=== PATIENT | female | born 2000 | race Caucasian/White ===

== ENCOUNTER 2024-01-03 02:02 | Day surgery (SDC) | payer BC, SELFPAY ==
[2024-01-02 17:49] VITALS: BP 128/94
[2024-01-02 18:00] LABS: Urine Albumin Trace (Neg - Trace); Urine Bilirubin Negative (Negative); Urine Character Clear (Clear); Urine Color Yellow; Urine Glucose Negative (Negative); Urine Ketone 3+ (Negative); Urine Leukocyte Trace (Negative); Urine Nitrite Negative (Negative); Urine Occult Blood Negative (Negative); Urine Specific Gravity 1.025 (<1.030); Urine Urobilinogen Negative (Neg - 1+)
[2024-01-02 18:08] LABS: Urine Squamous Cell >30 /LPF (Few)
[2024-01-02 18:10] LABS: Urine Red Blood Cell 0-2 /HPF (0-2); Urine White Cell 0-2 /HPF (0-5)
[2024-01-02 21:53] VITALS: BP 145/81
--- NOTE | 2024-01-02 22:25 | ED.GENMED ---
History of Present Illness
General
Chief Complaint: Abdominal Pain
Source: patient
Exam Limitations: none
Time Seen by Provider: 01/02/24 19:18
Nursing documentation reviewed up to this point in time: agreed with
History of Present Illness
History of Present Illness:
Patient to ED wt complaint of right pelvic pain. Symptoms started yesterday and worsened overnight. Had an episode of vomiting today. Denies fever/chills. No diarrhea. No prior history of same. LMP 2 weeks ago, normal. She is visiting from
[place]
Past History
Past History
ED Past Medical History: None
ED Past Surgical History: None
Review of Systems
Review of Systems
Allergies reviewed?: Yes
All Other Systems: ROS reviewed and negative except as documented in HPI and ROS
Constitutional: Reports no symptoms
EENT: Reports no symptoms
Respiratory: Reports no symptoms
Cardiac: Reports no symptoms
ABD/GI: Reports abdominal pain (Right lower abdominal pain)
: Reports no symptoms
Musculoskeletal: Reports no symptoms
Skin: Reports no symptoms
Neurological: Reports no symptoms
Psychiatric: Reports no symptoms
Phy Exam
General Physical Exam
General Presentation: well appearing and no apparent distress
Cardiovascular Exam
Cardiovascular Exam: regular rate/rhythm and no edema
Pulmonary Exam
Pulmonary Exam: lungs clear and no respiratory distress
Gastrointestinal Exam
Gastrointestinal Exam: normal bowel sounds, soft, no organomegaly, non distended and no cva tenderness
Palpation: left upper quadrant: No tenderness, left lower quadrant: No tenderness, right upper quadrant: No tenderness and right lower quadrant: Moderate tenderness
Musculoskeletal Exam
Musculoskeletal Exam: full ROM and neuro vasc intact
Skin Exam
Skin Exam: normal color, warm/dry and no rash
Psychiatric Exam
Psychiatric Exam: normal mood/affect
Course
Orders/Labs/Results
Orders:
Orders
01/02/24 17:55
Urinalysis Reflex To Culture Urgent
Date Specimen was Collected: 01/02/24
Time Specimen was Collected: 17:52
Urine Microscopic Reflex Cult Urgent
01/02/24 19:33
Pelvis (Non Obstetric) US [US Pelvis Only (non-obstetric)] Urgent
Comment:
Reason For Exam: pain
01/02/24 22:23
Test Result ONCE
01/02/24 22:30
CRP [C-Reactive Protein] Urgent
Complete Blood Count/With Diff Urgent
Comprehensive Metabolic Panel Urgent
HCG, Serum Qualitative Screen Urgent
Sed Rate [Erythrocyte Sed Rate] Urgent
01/03/24 00:01
CT Abd/pelvis W Iv Cont Urgent
Reason For Exam: RLQ pain
01/03/24 00:20
Piperacillin/Tazo 3.375 Gram [Zosyn] 3.375 gram in 50 ml IV NOW
01/03/24 00:29
0.9% Sodium Chloride 1000 ml [Nss] 1,000 ml IV BOLUS
HYDROmorphone [Dilaudid] 0.5 mg IV NOW STA
Ondansetron Injectable [Zofran] 4 mg IV NOW STA
01/03/24 01:27
Admit/Transfer Patient As Directed
Co-Sign Provider:
Level of Care: Inpatient admission
Assign to:: Medical/Surgical
Physician / Group: Jon Garcia
Diagnosis: Acute Appendicitis
Reason for Hospitalization: IV antibiotics, IV fluids
Possible OR
Expected length of stay greater than two midnights?: No
ELOS- Estimated Length of Stay in days: 2
I certify the patient meets the requirements for IP care: Yes
PRN Pain Medication Management As Directed
May give lesser potent ordered pain med per pt: Yes
preference::
Protocol:: Medication orders for pain may be administered in a
manner that supports deferring to patient preference
when the pt is:
- Requesting an ordered lesser potent pain medication.
Least to most potent pain medications are defined
as: acetaminophen < NSAID < tramadol < opioids
(morphine, oxycodone, hydromorphone).
- Requesting a lesser dose of the same medication IF
ORDERED.
- Requesting a less intrusive route of administration
if both routes are prescribed by the provider (PO <
IV).
01/03/24 01:30
Code Status As Directed
Resuscitation Status: Full Code
01/03/24 02:23
Ketorolac [Toradol] 10 mg IV Q6HPRN PRN
01/03/24 02:48
0.9% Sodium Chloride 1000 ml [Nss] 1,000 ml IV 100 mls/hr
01/03/24 02:48
Activity As Directed
Activity Level: Out of Bed-Early Mobility
Anti-embolism (YE) Hose As Directed
Type: Thigh high
Intake/ Output As Directed
Frequency: Per unit guidelines
Pneumatic Compression Sleeves As Directed
Type: Thigh high
Vital Signs As Directed
Frequency: Per unit guidelines
DX Deep Vein Thrombosis Video Routine
01/03/24 03:00
Flush (0.9% Sodium Chloride) [Flush (Nss)] See Dose Instructions IV PER PROTOCOL
01/03/24 05:49
Basic Metabolic Panel IN AM
Complete Blood Count/No Diff IN AM
01/03/24 06:00
EKG [Electrocardiogram (*1)] IN AM
Reason for Study: Other
Other Reason for Exam: Saeid wolf in the past
NPO
Allow oral meds: No
Allow clear liquids: No
Ondansetron Injectable [Zofran] 4 mg IV Q6HPRN PRN
Piperacillin/Tazo 3.375 Gram [Zosyn] 3.375 gram in 50 ml IV Q6H
01/03/24 08:50
HYDROmorphone [Dilaudid] 0.25 mg IV PACU-Q5MPRN PRN
HYDROmorphone [Dilaudid] 0.5 mg IV PACU-Q5MPRN PRN
Meperidine [Demerol] 12.5 mg IV PACU-Q5MPRN PRN
Ondansetron Injectable [Zofran] 4 mg IV PACU-ONCEPRN PRN
Prochlorperazine [Compazine] 5 mg IV PACU-ONCEPRN PRN
01/03/24 08:51
Notify MD As Directed
Notify physician if: for SDS patients with known or suspected sleep obstructive sleep apnea, monitor in the
PACU.
Notify MD for any apneic/desaturation episodes
O2 Therapy [RESP] Urgent
Titrate/Wean O2 to maintain O2 sat greater than (%): 92
Special Instructions: -Provide supplemental oxygen to achieve O2 sat of 92% or greater.
-After 15 min, may wean O2 and discontinue if patient is able to maintain O2 sat of 92%
or greater during recovery period.
If patient is a discharge home, without oxygen therapy, notify anestheiologist if
unable to maintain O2 SAT of 92% or greater on room air for MD clearance.
01/03/24 08:52
Fentanyl Citrate/Pf [Sublimaze] 100 mcg .ROUTE .STK-MED ONE
Midazolam HCl [Versed] 2 mg .ROUTE .STK-MED ONE
01/03/24 08:53
Dexamethasone Sod Phosphate [Decadron] 20 mg .ROUTE .STK-MED ONE
Lidocaine 2% Mpf [Xylocaine Mpf 2%] 100 mg .ROUTE .STK-MED ONE
Propofol [Diprivan] 20 ml .ROUTE .STK-MED
Rocuronium Cidra [Rocuronium] 50 mg .ROUTE .STK-MED ONE
01/03/24 09:00
Normosol (Mult Electrolytes) [Normosol-R] 1,000 ml IV PER PROTOCOL
01/03/24 09:20
Bupivacaine 0.5%Pf/Epinephrin [Sensorcain-Mpf Epi 0.5%-0.0005] 30 ml .ROUTE .STK-MED ONE
01/03/24 Lunch
Regular
At Your Request: Full Participation
Does patient need a safe tray?: No
01/03/24 10:03
Acetaminophen 1000MG/100Ml [Ofirmev] 1,000 mg in 100 ml .ROUTE .STK-MED
01/03/24 10:11
OR Pathology Routine
Pre-Operative Diagnosis: ACUTE APPENDICITIS
Post-Operative Diagnosis: SAME
Operative Procedure: LAP APPY
Surgeon: JOSE
Circulating Nurse: OSVALDO
Specimen Type: APPENDIX
01/03/24 10:15
Sugammadex Sodium [Bridion] 200 mg .ROUTE .STK-MED ONE
01/03/24 10:32
Discharge Patient As Directed
Do you have a designated caregiver: Yes-same as spokesperson
01/03/24 10:40
Level of Care Change As Directed
Level of Care: Post Proc/Surg Recovery
Reason for Overnight Stay: Standard of Care
Abnormal Lab Results
01/02/24 01/02/24 01/03/24
17:55 22:30 05:49
WBC 16.2 H 10^3/uL 11.3 H 10^3/uL
(4.8-10.8) (4.8-10.8)
RBC 3.98 L 10^6/uL
(4.20-5.40)
Hgb 11.3 L g/dL
(12.0-16.0)
Hct 36.7 L % 32.7 L %
(37.0-47.0) (37.0-47.0)
MCV 78.9 L fL
(81.0-99.0)
MPV 11.0 H fL
(7.4-10.4)
Abs Immat Gran (auto) 0.1 H 10^3/uL
(0-0.05)
Absolute Neuts (auto) 14.3 H 10^3/uL
(1.4-6.5)
Absolute Lymphs (auto) 1.0 L 10^3/uL
(1.2-3.4)
Absolute Monos (auto) 0.8 H 10^3/uL
(0.1-0.6)
Neutrophils % 88.3 H %
(42.2-75.2)
Lymphocytes % 6.4 L %
(20.5-51.1)
Carbon Dioxide 17 L mmol/L 20 L mmol/L
(22-30) (22-30)
Glucose 114 H mg/dl
(70-99)
C-Reactive Protein 59.60 H mg/L
(0.0-10.00)
Urine Ketones 3+ A
(Negative)
Leukocyte Esterase Rfl Trace A
(Negative)
01/03/24 05:49
01/03/24 05:49
Vital Signs
Initial and Last Documented VS:
Initial Vital Signs
Temp Pulse Resp BP Pulse Ox
97.5 F 111 16 128/94 98
01/02/24 17:49 01/02/24 17:49 01/02/24 17:49 01/02/24 17:49 01/02/24 17:49
Last Documented Vital Signs
Temp Pulse Resp BP Pulse Ox
97.9 F 85 16 105/66 98
01/03/24 10:35 01/03/24 12:36 01/03/24 12:36 01/03/24 12:36 01/03/24 12:36
*Critical Care Note
Total Time (30-74mins, 75-104mins- exclusive of procedures): Not Applicable
ED Attending Note
-
Portions of this chart may have been created with voice recognition software.� Occasional wrong word or��sound alike� substitutions may have occurred due to the inherent limitations of voice recognition software.
Discharge Plan
Departure
Patient Disposition: Admit
Date of Disposition: 01/03/24
Time of Disposition: 00:33
Admit to doctor: Jose
Presentation/result/management discussed w/ accepting MD/DO: Jose
Patient with high blood pressure during this ER visit?: No
Condition: Fair
Covid-19: Not Applicable
Discharge Problem:
Acute appendicitis
Interventions
Interventions:
*Risk Screen - Suicide Last Done: 01/03/24 03:34
*General Assessment Last Done: 01/02/24 20:25
*Neglect/Abuse Screening Last Done: 01/02/24 20:25
ED- Fall Risk Assessment Last Done: 01/02/24 22:43
*ED COVID-19 Vaccine History Last Done: 01/02/24 20:25
*Nursing Disposition Last Done: 01/03/24 02:52
SS-Vjxnww-Viigwvlbwc Assessment Last Done: 01/02/24 19:39
Discharge Date and Time
Discharge Date/Time: 01/03/24 02:52
[2024-01-02 22:41] LABS: % Basophils 0.2 % (0-2); % Eosinophils 0.1 % (0-6); % Immature Granulocytes 0.3 % (0-0.5); % Lymphocytes 6.4 % (20.5-51.1); % Monocytes 4.7 % (1.7-9.3); % Neutrophils 88.3 % (42.2-75.2); Absolute Immature Granulocytes 0.1 10^3/uL (0-0.05); Absolute Monocytes 0.8 10^3/uL (0.1-0.6); Absolute Neutrophils 14.3 10^3/uL (1.4-6.5); Hematocrit 36.7 % (37.0-47.0); Hemoglobin 12.9 g/dL (12.0-16.0); Mean Corp Hgb Conc. 35.1 g/dL (33.0-37.0); Mean Corpuscular Hgb 27.7 pg (27.0-31.0); Mean Corpuscular Volume 78.9 fL (81.0-99.0); Mean Platelet Volume 10.3 fL (7.4-10.4); Nucleated Red Blood Cells % 0 %; Platelet Count 227 10^3/uL (130-400); Red Blood Cell Count 4.65 10^6/uL (4.20-5.40); Red Cell Dist. Width 12.9 % (11.5-14.5); White Blood Cell Count 16.2 10^3/uL (4.8-10.8)
[2024-01-02 22:47] LABS: HCG, Serum Qualitative Screen Negative
[2024-01-02 22:50] VITALS: BP 131/83; BMI 20.5
[2024-01-02 23:19] LABS: Erythrocyte Sed Rate 19 mm/hour (0-20)
[2024-01-02 23:22] LABS: ALT (SGPT) 15 U/L (0-35); AST (SGOT) 24 U/L (14-36); Albumin 4.8 g/dl (3.5-5.0); Alkaline Phosphatase 52 U/L (38-126); Blood Urea Nitrogen 12 mg/dl (7-17); Calcium 9.9 mg/dl (8.4-10.2); Carbon Dioxide 17 mmol/L (22-30); Chloride 102 mmol/L (98-107); Estimated Creatinine Clearance > 125 ml/min; Glucose 114 mg/dl (70-99); Potassium 3.9 mmol/L (3.5-5.1); Sodium 136 mmol/L (135-145); Total Protein 7.6 g/dl (6.3-8.2); eGFR > 60.00
[2024-01-03] VITALS (8 sets, daily range): BP systolic 94–121; BP diastolic 51–77; BMI 25.2
[2024-01-03] MEDS: NSS 1000 IV ×2 (00:46→03:20)
[2024-01-03] MEDS: ZOSYN 50 IV ×3 (00:47→12:11)
[2024-01-03] MEDS: ZOFRAN 4 MG IV (00:47)
--- NOTE | 2024-01-03 01:38 | HPS.HSE ---
Addendum entered and electronically signed by Jon Garcia MD 01/03/24 07:30:
I saw and examined the patient independently.
The Refining Engineer's note was reviewed and I agree with the note, assessment and plan except where noted below.
Comment: This is a 23-year-old female who presents with a 1 to 2-day history of right lower quadrant abdominal pain with associated nausea and nonbloody nonbilious emesis. Denies any fevers or diarrhea. Tender to palpation in the right lower
quadrant. CT scan concerning for inflamed appendix all concerning for acute appendicitis.
Will plan for laparoscopic appendectomy in the OR today.
N.p.o., IV fluids, IV antibiotics.
Risks/Benefits/Alternatives, expected postoperative course and possible complications (bleeding, infection, injury to surrounding structures, acute/chronic pain) discussed at length. Patient wishes to proceed with surgery. All questions answered.
Consent obtained.
I spent roughly 60 minutes in total for the care of this patient today including direct patient care and counseling, reviewing labs, imaging, coordination of care, as well as documentation.
Original Note:
Family Physician
-
Family Physician: Laurie Guadalupe at [place], [place]
Chief Complaint
-
'abdominal pain'
History of Present Illness
23 y/o patient presents to ER with the c/o cramp like abdominal pain that started yesterday and worsened overnight. States pain is across her lower abdomen and right groin, mostly tender on RLQ with palpation. Reports she was nauseas today and
vomited few times. Normal formed BM x3 today, voiding without any difficulty, no blood in stool or urine noted. No surgical history.
Patient reports J point rhythm on an EKG that was taken at her work place, Echo was done and negative at that time.
Patient is from [place].
Medical History
Past Medical History
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
Past Surgical History: Reports None
Social History
Tobacco: Non-smoker
Alcohol: None
Drug: None
Personal: Single
Living: With Family
Family History
Family History: Not pertinent
Allergies / Home Medications
Allergies reflects when Allergies were last updated in [employer].
Home Medications with original date entered in [employer]
Allergy/Medication List:
Allergies
Allergy/AdvReac Type Severity Reaction Status Date / Time
No Known Allergies Allergy Unverified 01/02/24 17:48
Home Medications
No Meds [No Current Medications] 01/02/24
Review of Systems
-
History Source: Patient
A 12 point ROS was completed and negative except as noted: Yes
Constitutional: Reports No Symptoms
EENT: Reports No Symptoms
Respiratory: Reports No Symptoms
Cardiac: Reports No Symptoms
Abdomen/GI: Reports Abdominal Pain, Nausea and Vomiting
: Reports No Symptoms
Musculoskeletal: Reports No Symptoms
Skin: Reports No Symptoms
Neurological: Reports No Symptoms
Endocrine: Reports No Symptoms
Hematologic/Lymphatic: Reports No Symptoms
Psych: Reports No Symptoms
Physical Exam
Vital Signs
Vital Signs
Temp Pulse Resp BP Pulse Ox
98.1 F 85 18 121/71 99
01/03/24 00:44 01/03/24 00:44 01/03/24 00:44 01/03/24 00:44 01/03/24 00:44
Physical Exam
General: Well Developed, Well Nourished and No Apparent Distress
HEENT: NormoCephalic, Moist mucous membranes and Atraumatic
Respiratory: Clear and Non Labored Respirations
Cardiac: S1/S2 and Regular Rhythm; No Murmur or Rub
Breast: Deferred by me
GI: Soft, Non Distended, Normal Bowel Sounds and Tender (mostly Right Lower quadrant ); No Organomegaly
Rectal: Deferred by Provider
Genito-urinary: Deferred by me
Musculoskeletal: No Clubbing, No Cyanosis and No Edema
Skin: Warm and Dry
Neuro: Awake, Alert, AO x 3 and Nonfocal/grossly intact
Hematologic/Lymphatic: No Lymphadenopathy
Psych: Calm and Anxious
Laboratory Results
-
01/02/24 22:30
01/02/24 22:30
Laboratory Results
Total Bilirubin 1.0 mg/dl (0.2-1.3) 01/02/24 22:30
AST 24 U/L (14-36) 01/02/24 22:30
ALT 15 U/L (0-35) 01/02/24 22:30
Alkaline Phosphatase 52 U/L (38-126) 01/02/24 22:30
Data Reviewed
-
CT Scan: Report Reviewed by me
Ultrasound: Report Reviewed by me
Lab Data: Labs Reviewed by me
Impression/Plan
-
23 y/o with abdominal pain
# Abdominal pain likely due to Acute Appendicitis
- Pelvic US: Unremarkable sonographic appearance of the uterus and ovaries. The patient did note subjective tenderness within the right lower quadrant.
There is a likely loop of nondilated bowel adjacent to the right ovary.
Trace free fluid within the pelvis, likely physiologic.
-CT abd/pelvis: + Appendicitis
-WBC: 16.2
- Continue IV Toradol for pain relief
- Continue IV Zofran
-Continue IV Zosyn
-Continue IV fluids
-NPO
-Admit/observation Dr. Garcia (surgical service)
Hx of J-point rhythm. Echo was done by PCP Dr. Laurie Guadalupe
-EKG in AM
Full Code
DVT Prophylaxis.
[2024-01-03] MEDS: TORADOL 10 MG IV (02:32)
[2024-01-03 06:25] LABS: Hematocrit 32.7 % (37.0-47.0); Hemoglobin 11.3 g/dL (12.0-16.0); Mean Corp Hgb Conc. 34.6 g/dL (33.0-37.0); Mean Corpuscular Hgb 28.4 pg (27.0-31.0); Mean Corpuscular Volume 82.2 fL (81.0-99.0); Platelet Count 191 10^3/uL (130-400); Red Blood Cell Count 3.98 10^6/uL (4.20-5.40); Red Cell Dist. Width 12.9 % (11.5-14.5); White Blood Cell Count 11.3 10^3/uL (4.8-10.8)
[2024-01-03 06:56] LABS: Blood Urea Nitrogen 10 mg/dl (7-17); Calcium 8.7 mg/dl (8.4-10.2); Carbon Dioxide 20 mmol/L (22-30); Chloride 106 mmol/L (98-107); Estimated Creatinine Clearance 111 ml/min; Glucose 79 mg/dl (70-99); Potassium 3.9 mmol/L (3.5-5.1); Sodium 139 mmol/L (135-145); eGFR > 60.00
--- NOTE | 2024-01-03 07:31 | W.SUR.PREOP ---
Pre-Operative Surgical Note
-
I have examined this patient prior to the performance of the scheduled procedure.
The patient's condition is unchanged from the time of the current History and
Physical and the patient is able to undergo the scheduled procedure.
--- NOTE | 2024-01-03 10:35 | W.IMMPOSTOP ---
Surgical Immed Post Op Note
-
Primary Surgeon: Jon Garcia MD
Assisting Surgeon: None
Pre-op Diagnosis: Acute appendicitis
Post-op Diagnosis: Same
Procedure Performed: Laparoscopic appendectomy
Anesthesia Type: General
Specimen / Cultures: Appendix
Estimated Blood Loss: 3 cc
Complications: None
Operative Findings: Standard three 5 mm port appendectomy. Suppurative but nonperforated. The base ligated with a 0 PDS Endoloop x 2. Some murky fluid in the cul-de-sac was suctioned out. No irrigation used.
POST OP PLAN:
Imaging: None
Labs: Routine AM
Diet: Advance to Regular as tolerated
Analgesia: Tylenol 650mg q6 José Manuel, Andie 5mg q6 PRN, Dilaudid 0.5mg q2h PRN
Neuro/vascular checks: q4h
AC/AP: Hold Therapeutic AC, Ok for DVT PPx
Activity: Ad Romelia
Wound/Incisions/Drains: Routine
Abx: Continue antibiotics while admitted, will DC with a 4-day course
Dispo: RNF, anticipate discharge home later today
--- NOTE | 2024-01-03 10:37 | OR.RPT ---
Operative Report
Operative Report
Patient Name: Shavon Tim
: 2000
Date of Operation: 01/03/2024
Preoperative Diagnosis: Acute Appendicitis
Postoperative Diagnosis: Same
Procedure(s):
Laparoscopic Appendectomy
Surgeon(s):
Dr. Garcia
Mason Liner(s):
LEVY Goncalves
Anesthesia: General
Estimated Blood Loss: 3 cc
Urine Output: None
Drains/Lines/Implants: None
Specimens:
1. Appendix
HPI/Surgical Indications:
This is a 23-year-old female who presents with a 1 day history of abdominal pain. Exam, labs and imaging are consistent with acute appendicitis. Risks/Benefits/Alternatives were discussed at length, and the patient agreed to proceed with surgery.
Operative Findings: Standard three 5 mm port appendectomy. Suppurative but nonperforated appendix. The base ligated with a 0 PDS Endoloop x 2. Some murky fluid in the cul-de-sac was suctioned out. No irrigation used.
Procedure Description:
The patient was placed in the supine position, with the left arm tucked, and general anesthesia was induced. The abdomen was prepared and draped in a sterile fashion so as to expose the entire abdomen. A surgical time out was taken. Abdominal access
was obtained with an 5mm infra-umbilical Hilton Entry. After confirming no injury on entrance, two additional 5mm ports were placed in the suprapubic area just off midline and in the left lower quadrant. The patient was placed in Trendelenberg with
the right slightly up . The appendix was identified and a window was created in the mesoappendix. The appendix was suppurative and inflamed but not perforated. Using a harmonic energy device, the meso appendix was divided. The base of the appendix
appeared uninvolved and was ligated/divided using two 0-PDS Endoloops and the energy device. The appendix was placed in a specimen retrieval bag. Hemostasis was confirmed and the ports were removed under visualization. There was some murky
appearing fluid in the cul-de-sac which was suctioned until clear, no irrigation was used. The specimen was passed off the field. The umbilical port was closed with a [id number] 0-PDS and the skin for all three ports was closed with
interrupted monocryls and covered with dermabond. The patient was awoken from anesthesia in good condition and transported to the recovery area.
I was the attending physician and performed the procedure with assistance from the AIRCRAFT PNEUDRAULIC SYSTEMS MECHANIC above. I was present for all portions of the case, excluding skin closure.
Jon Garcia MD
--- NOTE | 2024-01-03 12:39 | CM ---
S/P lap appendectomy
Met with pt and extended family members at bedside in a 2 story home in [place], with her boyfriend and his family. Here visiting local family.
Independent, drives, recently graduated from College
DME - none
SNF/HH - no hx
Has ride home
PCP - Laurie Guadalupe ([facility])
Pharm - [facility]
Plan - anticipate home no needs
--- NOTE | 2024-01-03 13:09 | W.DCSUMMARY ---
Discharge Summary
Discharge Data
Date of Admission: 01/03/24
Date of Discharge: 01/03/24
-
Pending Results: No
Hospital Course
23 yo female who presented through the ED with 1-2 day history of right lower quadrant abdominal pain. Exam and imaging were consistent for appendicitis. She was taken to the operating room for laparoscopic appendectomy which proceeded without
complication. After surgery, she had good pain control and was able to tolerate diet advancement. She was discharged to home with ouptatient follow up planned in the coming weeks.
Discharge Plan
-
Patient Disposition: Home (Routine Discharge)
Discharge Diagnosis/Procedures: Appendicitis with laparoscopic appendectomy
Condition: Good
Diet: As tolerated and Regular
Activity: No strenuous activity
Driving Restrictions: No driving for 24 hours
Bathing Restrictions: OK to Shower
Activity Restrictions/Additional Instructions:
Instructions following Laparoscopic appendectomy
Please call [phone] if you have any questions or concerns after your surgery.
Wound Care:
Your incisions are covered with skin glue which will come off on it�s own in 5-10 days.
It is ok to shower the day after your surgery. Do not scrub the incisions, let soap and water wash over them and pat dry.
� Bruising around your incisions is normal.
� Using ice packs will help minimize this swelling.
� No swimming or soaking incisions for 1 week.
� Your stitches will dissolve and do not need to be removed.
Urinary retention:
If you are unable to urinate 6-8 hours after your surgery, please call [phone] to discuss further management.
Activity:
No heavy lifting more than 15 pounds for the next 3 weeks, then you may gradually lift heavier objects as tolerated by discomfort. Otherwise activity as tolerated by your comfort level.
Pain Management:
Use Tylenol, ibuprofen and ice packs to treat your pain.
� You may take 650 milligrams of Tylenol (Max 3 grams per day) every 6 hours, and 600 mg of ibuprofen also every 6 hours. (you can alternate them every 3 hours)
� You may use an ice pack to your incision as needed.
� If you still have pain not controlled by these measures, take your prescription pain medication as prescribed.
Medications:
You may resume your home medications.
Bowel Medications:
Prescription pain medication can make you constipated. If you take this medication, also take colace 100 mg twice daily (this is over the counter). If this is not sufficient, you may take Miralax (polyethylene glycol) to help move your bowels.
Diet:
After your procedure, there are no dietary restrictions.
Driving restrictions:
No driving if you are taking prescription pain medication or if you think your normal reaction time and attentiveness has been slowed by your surgery.
Things to Look out for:
Worsening Abdominal pain, redness or drainage from incision
Call Doctor for:
Please call if you notice worsening redness or drainage from incision(s) lasting longer than 5 days after your surgery, any foul-smelling drainage from the incision, pain not controlled by pain medications, persistent nausea and vomiting, or for any
fevers greater than 101.3 F. The number for questions/concerns is [phone]
Follow-up:
Follow-up appointment will be scheduled with your surgeon in 3-4 weeks. Please call prior to your appointment if you have any questions or concerns. [phone]
Referrals:
Jon Garcia MD [Active] - in two to four weeks
UNKNOWN - PT DOES,NOT KNOW [Family Provider] -
Prescriptions:
New
acetaminophen 325 mg tablet
650 mg PO Q6HPRN PRN (Reason: mild pain) Qty: 14 0RF
ibuprofen 600 mg tablet
600 mg PO Q6H PRN (Reason: pain) Qty: 14 0RF
amoxicillin-pot clavulanate [Augmentin] 500-125 mg tablet
1 tab PO Q12H Qty: 8 0RF
tramadol 50 mg tablet
25 - 50 mg PO Q6HPRN PRN (Reason: severe pain/breakthrough pain) Qty: 8 0RF
Discharge Orders:
Discharge Patient (As Directed); Ordered 01/03/24
Ordered By: Jon Garcia
Discharge Date and Time
Print Language: FRENCH
== END 2024-01-03 13:39 | disposition home or self-care (01) ==
LOC: SDS 02:02
PROVIDERS: Nurse Practitioner; Nurse Practitioner Gerontology; Student in an Organized Health Care Education/Training Program; ATTENDING PHYSICIAN Surgery; EMERGENCY PHYSICIAN Emergency Medicine
PROC: 0DTJ4ZZ Resection of Appendix, Percutaneous Endoscopic Approach (ICD-10-PCS; 2024-01-03)
DX: K35.80 Unspecified acute appendicitis (principal)
CPT/HCPCS: 44970; 88304; 74177; 76856; 80048; 80053; 81003; 81015; 84703; 85025; 85027; 85652; 86140; 93005; 96361; 96365; 96375; 99285; C1776; Q9967